=== PATIENT | female | born 1980 | race Caucasian/White ===

== ENCOUNTER 2019-06-18 17:15 | Inpatient (IN) | payer OTHER ==
[2019-06-18] VITALS (20 sets, daily range): BP systolic 74–127; BP diastolic 33–96
[~2019-06-18] VITALS: Ht 170.2 cm; Wt 89.4 kg
--- NOTE | ~2019-06-18 | HC ---
[facility] [place] [address] CONSULTATION Name: SHELTON PEREZ Room #: 244-P ADM IN M.R.#: [id number] Admission: 06/18/19 Attend Phys: Omer Mata MD Discharge: Date of : 76 Report #: [id number] THIS REPORT FOR: cc: ROSCOE - No family physician/PCP ROSCOE - No family physician/PCP Drea Mccarthy MD ~ CC: [facility] physician/PCP Gerardo Salcedo REASON FOR CONSULTATION: Acute kidney injury. REASON FOR PRESENTATION: Witnessed cardiac arrest. HISTORY OF PRESENT ILLNESS: Obtained from the medical charts. The patient is intubated. She is known to have breast cancer, triple negative breast cancer with diffuse metastases including the lung with complicated pleural effusion. Apparently, the patient has been at for an extended period of time. She had a witnessed cardiopulmonary arrest and CPR was initiated. The patient required 35 minutes of CPR with 6 rounds of epinephrine. Upon transporting here, she had another arrest and received a 7th dose of epinephrine. She is currently in the ICU, intubated, maintained on many pressors with a pH of 6.9 and an acute kidney injury. Lactate is up to 25. PAST MEDICAL HISTORY: From the medical chart, metastatic breast cancer. Recent hospitalizations at ruled out for COVID-19 infection. Other details are not available. ALLERGIES: Unknown. FAMILY HISTORY: Unknown due to the current patient's mental status. SOCIAL HISTORY: Unknown given the patient's current mental status. MEDICATIONS: Unknown given the patient's current mental status. REVIEW OF SYSTEMS: Unknown and unobtainable given the patient's current mental status and intubation. PHYSICAL EXAMINATION: VITAL SIGNS: Temperature is 33.2, blood pressure of 75/45, pulse rate is 85. HEAD AND NECK: ET tube with mottled skin on her face. CHEST: Decreased air entry on the left side. CARDIOVASCULAR: No rub with very thready pulse. [facility] [address] [place] [address] CONSULTATION Name: SHELTON PEREZ Room #: 244-[facility] IN .R.#: [id number] Admission: 06/18/19 Attend Phys: Omer Mata MD Discharge: Date of : 76 Report #: [id number] ABDOMEN: Soft. EXTREMITIES: Lower extremities, very mottled skin. LABORATORY DATA: Reviewed. The platelet count of 26,000, hemoglobin is 9.4, pH of 6.9 and a lactate of 24. Sodium was 150, potassium was 4.8. Troponin was 1.5. BUN was 28, creatinine was 4.81. IMPRESSION AND PLAN: 1. Acute kidney injury. 2. Post-cardiac arrest. 3. Severe metabolic acidosis. 4. Metastatic breast cancer. Current patient's situation, pH and laboratory values are incompatible with a survivable situations and life. There is really and unfortunately nothing from the renal perspective that would help this patient. Primary and Pulmonary team are reaching out to the family members to proceed with palliative, comfort care. By: 0724 0748 Drea Mccarthy MD /asia
--- NOTE | ~2019-06-18 | EMS ---
[address] [address] EMS Patient Care Report Name: SHELTON PEREZ Room #: 170-7 ADM IN M.R.#: [id number] Admission: 06/18/19 Attend Phys: Omer Mata MD Discharge: Date of : 76 Report #: [id number] THIS REPORT FOR: //name// Report Transmitted: 06/18/2019 18:15 EMS Care Summary [facility] MED-ACT Incident [id number] @ 06/18/2019 16:03 Incident Location [facility] [place] [address] Patient SHELTON PEREZ Female, 38 Years 1980 Patient Address [address] [place] [address] Patient History Cancer, Unspecified, Chief Complaint cardiac arrest Disposition Transported Lights/Powers Dispatch Reason Cardiac Arrest/ Transported To [facility] Narrative [id number] arrived on scene to a residence where first responders had already triaged code blue prior to EMS arriving. PAPR was dawned by EMS personnel and entered the residence to find a female patient laying supine on the floor with first responders performing CPR and had an IGEL in place and ventilating with BVM. First responders advised that it was a witnessed arrest by the patient's family. The patient has stage 4 of a cancer but they did not know the type of cancer. She was discharged yesterday from [facility]. Initial rhythm was asystole until about group home to ROSC where it then changed to PEA before obtaining ROSC. [facility] [address] [facility] [place] [address] EMS Patient Care Report Name: SHELTON PEREZ Room #: 170-7 ADM IN M.R.#: [id number] Admission: 06/18/19 Attend Phys: Omer Mata MD Discharge: Date of : 76 Report #: [id number] Cardiac arrest protocol followed with IO established and epi every 3-5 minutes no defibs due to non shockable rhythms. After ROSC was obtained a full set of vitals was obtained and then the patient transferred onto a tarp [facility]. ROSC remained and Kyle CPR device was transported with patient. ROSC was lost during transport CPR resumed update on [employer] to [place] that ROSC was lost. Report given to staff resuscitation efforts was transferred to [place] and resuscitation was continued. Initial Vitals @16:35P: 0,R: 0,GCS: 3,EtCO2: 51, @16:46P: 0,R: 0,GCS: 3,EtCO2: 48, @16:49P: 122,R: 0,BP: 101/67,GCS: 3,EtCO2: 66,Revised Trauma: 4, @17:05P: 0,R: 0,GCS: 3,EtCO2: 69, @16:13P: 0,R: 0,GCS: 3,Glucose: 114, @16:51P: 123,R: 0,GCS: 3,Glucose: 71,CO: 1,EtCO2: 78,SpO2: 94, Assessments @16:13MENTAL:Unresponsive,SKIN:Pale,HEENT:Head/Face: No Abnormalities,LUNG SOUNDS:General: No Abnormalities,Left Upper: No Abnormalities,Right Upper: No Abnormalities,Left Lower: No Abnormalities,Right Lower: No Abnormalities,ABDOMEN:General: No Abnormalities,Left Upper: No Abnormalities,Right Upper: No Abnormalities,Left Lower: No Abnormalities,Right Lower: No Abnormalities,PELVIS//GI:No Abnormalities,EXTREMITIES:Left Arm: No Abnormalities,Right Arm: No Abnormalities,Left Leg: No Abnormalities,Right Leg: No Abnormalities,PULSE:NEURO:No Abnormalities, Impression Cardiac arrest Procedures @PTAResponse: UnchangedSucceeded@16:22Epinephrine 1:10 - 1 Milligrams (mg) - Intravenous (IV)Response: Improved@16:5112-Lead ECGResponse: UnchangedSucceeded@16:26Epinephrine 1:10 - 1 Milligrams (mg) - Intravenous (IV)Response: Unchanged@16:40Epinephrine 1:10 - 1 Milligrams (mg) - Intravenous (IV)Response: Unchanged@16:35Epinephrine 1:10 - 1 Milligrams (mg) - Intravenous (IV)Response: Unchanged@16:30Epinephrine 1:10 - 1 Milligrams (mg) - Intravenous (IV)Response: Unchanged@16:45Epinephrine 1:10 - 1 Milligrams (mg) - Intravenous (IV)Response: Unchanged@16:21Normal Saline (.9% NaCl) 500cc (EZ-IO (Blue 25mm)) Site: NQ-Akwgm-Grjw ProximalResponse: UnchangedSucceeded@16:19Saline Lock 0cc (18 ga) Site: Forearm-LeftResponse: UnchangedFailed@16:28Response: UnchangedSucceeded@PTAiGEL Complications: None,Response: UnchangedSucceeded Timeline EXERCISE TEACHER,Response: UnchangedSucceeded, EXERCISE TEACHER,iGEL Complications: None,,Response: UnchangedSucceeded, 16:02,Call Received [facility] [address] [place] [address] EMS Patient Care Report Name: SHELTON PEREZ Room #: 170-7 ADM IN Talib#: [id number] Admission: 06/18/19 Attend Phys: Omer Mata MD Discharge: Date of : 76 Report #: [id number] 16:02,Psap Call 16:03,Dispatched 16:04,En Route 16:09,On Scene 16:13,At Patient 16:13,BP: / M,PULSE: 0,RR: 0 R,SPO2: Ox,ETCO2: ,B,PAIN: ,GCS: 3, 16:19,Saline Lock 0cc 18 ga Site: Forearm-Left,Response: UnchangedFailed, 16:21,Normal Saline (.9% NaCl) 500cc EZ-IO (Blue 25mm) Site: FS-Zbfmy-Kllu Proximal,Response: UnchangedSucceeded, 16:22,Epinephrine 1:10 - 1 Milligrams (mg) - Intravenous (IV),Response: Improved 16:26,Epinephrine 1:10 - 1 Milligrams (mg) - Intravenous (IV),Response: Unchanged 16:28,Response: UnchangedSucceeded, 16:30,Epinephrine 1:10 - 1 Milligrams (mg) - Intravenous (IV),Response: Unchanged 16:35,Epinephrine 1:10 - 1 Milligrams (mg) - Intravenous (IV),Response: Unchanged 16:35,BP: / M,PULSE: 0,RR: 0 R,SPO2: Ox,ETCO2: 51 ,BG: ,PAIN: ,GCS: 3, 16:40,Epinephrine 1:10 - 1 Milligrams (mg) - Intravenous (IV),Response: Unchanged 16:45,Epinephrine 1:10 - 1 Milligrams (mg) - Intravenous (IV),Response: Unchanged 16:46,BP: / M,PULSE: 0,RR: 0 R,SPO2: Ox,ETCO2: 48 ,BG: ,PAIN: ,GCS: 3, 16:49,BP: 101/67 M,PULSE: 122,RR: 0 R,SPO2: Ox,ETCO2: 66 ,BG: ,PAIN: ,GCS: 3, 16:51,BP: / M,PULSE: 123,RR: 0 R,SPO2: 94 Ox,ETCO2: 78 ,B,PAIN: ,GCS: 3, 16:51,12-Lead ECG,Response: UnchangedSucceeded, 16:58,Depart Scene 17:03,At Destination 17:05,BP: / M,PULSE: 0,RR: 0 R,SPO2: Ox,ETCO2: 69 ,BG: ,PAIN: ,GCS: 3, 17:54,Call Closed Disclaimer v1.1 Copyright 2020 [employer] This EMS Care Summary contains data elements from the applicable legal record (which may be displayed differently). It is designed to provide pertinent information for the following purposes: continuity of care, clinical quality, and state data reporting. The complete legal record is available to ED staff and administrators of the receiving hospital in [email or web address]'s Patient Tracker. All data is provided "as is."
[2019-06-18 17:57] LABS: HEMATOCRIT 29.2 % (37.0-47.0); HEMOGLOBIN 8.6 gm/dL (12.0-15.0); MCH 25.5 pg (26.0-34.0); MCHC 29.2 g/dL (28.0-37.0); MCV 87.1 fL (80.0-100.0); PLATELET COUNT 215 thou/uL (150-400); RBC 3.36 mil/uL (4.20-5.00); RDW 19.1 % (10.5-14.5); WBC 14.9 thou/uL (4.0-11.0)
[2019-06-18 18:13] LABS: CALCIUM 7.3 mg/dL (8.5-10.1); CREATININE 3.6 mg/dL (0.6-1.0); POTASSIUM 5.8 mmol/L (3.5-5.1); TROPONIN-I 0.18 ng/mL (<0.06)
[2019-06-18 18:27] LABS: ANISOCYTOSIS 2+; ATYPICAL LYMPHS 2 %; HYPOCHROMASIA 1+; METAMYELOCYTES 3 %; MYELOCYTES 1 %; NUCLEATED RBCS 4 /100WBC; PLATELET ESTIMATE NORMAL
[2019-06-18 18:27] LABS: BE(vivo) -23.6 mmol/L (-2 to +3); HCO3 7.3 mmol/L (22.0-26.0); PCO2 34.7 mmHg (35.0-45.0); pH 6.938 (7.360-7.450); sO2 99.4 % (92.0-98.0)
[2019-06-18 18:28] LABS: LARGE PLATELETS OCCASIONAL; TOXIC GRANULATION 1+
[2019-06-18 19:25] LABS: FIBRINOGEN 169.1 mg/dL (210-360); INR 2.2; PROTIME 22.6 Seconds (9.3-11.4)
[2019-06-18 19:34] LABS: D-DIMER > 35.20 ug/mLFEU (0.19-0.50)
[2019-06-18 19:36] LABS: APTT 139.6 Seconds (24.5-32.8)
[2019-06-18 19:42] LABS: BE(vivo) -20.2 mmol/L (-2 to +3); PO2 313.4 mmHg (80.0-100.0); sO2 99.5 % (92.0-98.0)
[2019-06-18 19:43] LABS: pH 7.053 (7.360-7.450)
--- NOTE | 2019-06-18 21:14 | NUR ---
REPORT RECEIVED FROM AMARI IN ED. PATIENT TRANSFERED FROM ICU VIA CART. PATIENT CONNECTED TO ICU MONITORS. PT ARRIVED WITH LEVOPHED AND EPI GTTS INFUSING AND PT ON VENTILATOR. PT WAS ASSESSED PER ICU PROTOCOL AND STARTED ON HYPOTHERMIA PROTOCOL WITH THE AID OF JANE. SPOKE WITH SARWAT BARRY REGARDING ORDERS. DR. PADILLA WAS CALLED TO UPDATE ON PTS STATUS. FAMILY WAS CALLED AND NOTIFIED OF PTS CONDITION AND THE VISTOR RESTRICTION.
--- NOTE | 2019-06-18 22:10 | NUR ---
NO CHEST XRAY IN CHART REGUARDING ETT/NGT PLACEMENT. CALLED ER AND SPOKE WITH DR. KENDALL, HE HAD SEEN THE CXR TAKEN IN THE ER AND REPORTED THAT THE ETT/NGT ARE IN THE CORRECT PLACE AND CAN BE USED.
[2019-06-18 23:00] LABS: BE(vivo) -22.9 mmol/L (-2 to +3); HCO3 6.7 mmol/L (22.0-26.0); PCO2 26.9 mmHg (35.0-45.0); PO2 338.9 mmHg (80.0-100.0); sO2 99.5 % (92.0-98.0)
[2019-06-18 23:01] LABS: pH 7.017 (7.360-7.450)
[2019-06-19] VITALS (29 sets, daily range): BP systolic 51–161; BP diastolic 31–106
[2019-06-19 00:51] LABS: RDW 19.3 % (10.5-14.5)
[2019-06-19 00:52] LABS: HEMATOCRIT 37.1 % (37.0-47.0); MCH 25.4 pg (26.0-34.0); MCHC 29.5 g/dL (28.0-37.0); MCV 86.2 fL (80.0-100.0); WBC 14.5 thou/uL (4.0-11.0)
[2019-06-19 01:07] LABS: CREATININE 3.9 mg/dL (0.6-1.0); HEMOGLOBIN 10.9 gm/dL (12.0-15.0); MAGNESIUM 3.7 mg/dL (1.8-2.4); PHOSPHORUS 8.4 mg/dL (2.5-4.9)
[2019-06-19 01:15] LABS: POTASSIUM 4.3 mmol/L (3.5-5.1)
[2019-06-19 01:16] LABS: TROPONIN-I 1.29 ng/mL (<0.06)
[2019-06-19 01:48] LABS: INR 3.6; PROTIME 36.2 Seconds (9.3-11.4)
[2019-06-19 01:50] LABS: ABSOLUTE NEUTROPHILS 11.9 thou/uL (1.4-8.2); NUCLEATED RBCS 2 /100WBC; PLATELET COUNT 55 thou/uL (150-400)
[2019-06-19 01:51] LABS: ANISOCYTOSIS 2+; PLATELET ESTIMATE DECREASED; POIKILOCYTOSIS 2+
[2019-06-19 01:53] LABS: APTT 107.3 Seconds (24.5-32.8)
[2019-06-19 04:30] LABS: BE(vivo) -26.1 mmol/L (-2 to +3); HCO3 5.4 mmol/L (22.0-26.0); PCO2 27.3 mmHg (35.0-45.0); PO2 183.2 mmHg (80.0-100.0); sO2 98.2 % (92.0-98.0)
[2019-06-19 04:31] LABS: pH 6.916 (7.360-7.450)
--- NOTE | 2019-06-19 05:55 | NUR ---
SPOKE WITH DR. PADILLA THIS MORNING IN REGARDS TO PATIENTS CONDITION. PATIENT IS NOT MAKING URINE (10ML TOTAL FOR SHIFT), UNABLE TO GET BLOOD PRESSURES. PATIENT NOT RESPONDING TO ANY DEEP PAIN STIMULUS. NO GAG/CORNEAL REFLEX PRESENT. [facility] WAS NOTIFIED AND A REFERRAL NUMBER WAS OBTAINED. SARWAT BARRY CONTACTED FAMILY TO UPDATE THEM ON PATIENTS CONDITION. FAMILY WISHING TO CONTINUE CURRENT TREATMENT COARSE. DR. PADILLA STATING PATIENTS CONDITION IS NOT STABLE ENOUGH FOR HYPOTHERMIA PROTOCOL. AT 0506 PATIENT STARTED REWARMING PER DR. PADILLA'S ORDERS.
[2019-06-19 05:59] LABS: CREATININE 4.1 mg/dL (0.6-1.0); POTASSIUM 4.8 mmol/L (3.5-5.1)
[2019-06-19 06:06] LABS: HEMATOCRIT 29.9 % (37.0-47.0); HEMOGLOBIN 9.4 gm/dL (12.0-15.0); MCH 27.5 pg (26.0-34.0); MCHC 31.3 g/dL (28.0-37.0); MCV 87.8 fL (80.0-100.0); PLATELET COUNT 26 thou/uL (150-400); RBC 3.41 mil/uL (4.20-5.00); RDW 18.6 % (10.5-14.5)
[2019-06-19 06:11] LABS: MAGNESIUM 3.6 mg/dL (1.8-2.4); PHOSPHORUS 10.3 mg/dL (2.5-4.9)
[2019-06-19 06:32] LABS: TROPONIN-I 1.53 ng/mL (<0.06)
[2019-06-19 06:41] LABS: PROTIME 65.4 Seconds (9.3-11.4)
[2019-06-19 07:00] LABS: APTT 114.4 Seconds (24.5-32.8); INR 6.5
[2019-06-19 07:56] LABS: BE(vivo) -28.5 mmol/L (-2 to +3); HCO3 3.9 mmol/L (22.0-26.0); PO2 248.3 mmHg (80.0-100.0); sO2 98.9 % (92.0-98.0)
[2019-06-19 07:57] LABS: PCO2 23.9 mmHg (35.0-45.0); pH 6.832 (7.360-7.450)
--- NOTE | 2019-06-19 08:00 | NUR ---
ASSUMMED CARE, LEVOPHED DRIP TITRATED TO KEEP MAP GREATER THAN 60 MMHG. PATIENT ON WARMING PORTION OF ARTIC SUN. ABG'S DRAWN, RESULTS PENDING.
--- NOTE | 2019-06-19 09:28 | EKG ---
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1980 Requested By: Javi Chavis Order Number: [id number] MD: Rashawn Hamilton Measurements Intervals [place] Rate: 113 P: 72 NC: 165 QRS: 126 QRSD: 75 T: QT: 309 QTc: 424 Interpretive Statements Sinus tachycardia Anteroseptal infarct, age indeterminate Low voltage Diffuse ST segment abnormality No previous ECG available for comparison Electronically Signed On 06-19-2019 9:26:45 CDT by Rashawn Hamilton [email or web address] <ELECTRONICALLY SIGNED> By: Rashawn Hamilton MD, FAC 06/19/19 0926 1815 1815 Rashawn Hamilton MD, [facility] /EPI
--- NOTE | 2019-06-19 09:30 | NUR ---
PATIENT CONTINUES TO HAVE LOW BP AND BECOMING MOTTLED, ABG'S CALLED TO DR PADILLA AND SODIUM BICARB GIVEN PER ORDER. LEVOPHED TITRATED TO 30 MCG/MIN AND EPI DRIP TITRATED FOR BP MANAGEMENT. PARENTS UPDATED AND WILL BE IN WHEN THEY CAN SEE THE PATIENT. WILL CONTINUE TO MONITOR.
--- NOTE | 2019-06-19 10:39 | NUR ---
SPOKE WITH MOTHER AT 1030 CONCERNING WHERE TO PARK AND CHEDK IN TO COME UP TO THE ROOM
--- NOTE | 2019-06-19 11:16 | NUR ---
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 Pt with very poor prognosis, intubated on max pressors with no gag/corneal reflex. EEG tomorrow. Electrolyte abnormalities. NPO day 1. RD available if nutrition support recs are desired however physicians are recommending care withdrawal.
[2019-06-19 11:40] LABS: ABSOLUTE NEUTROPHILS 8.3 thou/uL (1.4-8.2); METAMYELOCYTES 4 %; NUCLEATED RBCS 9 /100WBC
[2019-06-19 11:42] LABS: ANISOCYTOSIS 2+
--- NOTE | 2019-06-19 12:00 | NUR ---
PARENTS IN TO SEE PATIENT, KATHRYN AT THE BEDSIDE WITH THE PARENTS THEY EACH CAME IN SEPARETLY. DR PADILLA IN TO EXAMINE PATIENT AND WILL SPEAK WITH THE PARENTS. DR SOUZA SPOKE WITH THE PARENTS VIA PHONE EARLIER THIS AM PER PARENTS AND DR SOUZA.
--- NOTE | 2019-06-19 12:22 | NUR ---
PATIENT MONITOR SR TO SB TO ADWOA, DR PADILLA AT BEDSIDE, AMP OF EPI GIVEN PER ORDER. NO RESPONSE TO EPI. ALL DRIPS AT MAX. PATIENT PRONOUCED AT [address] PADILLA. PUPILS FIXED AND DILATED. NO HEART TONES. MONITOR SHOWS ASYSTOLE.
--- NOTE | 2019-06-19 13:07 | NUR ---
Case discussed with the care team. The attending has talked with the pt's parents and they were on their way to be with her. Poor prognosis. Family discussing her code status. Will remain available for support as needed. UR checking for medicare/or medicaid coverage. [employer] referral initiated. Pt was recently at [facility] and on experimental tx for stg IV breast CA.
== END 2019-06-19 12:22 | DRG 871 ==
LOC: EDBD 17:15 → ER 17:15 → ICU 18:44 → EROBS 18:44 → ICU 21:11
PROVIDERS: Emergency Medicine; Internal Medicine Pulmonary Disease; ADMIT Internal Medicine
PROC: 02HV33Z Insertion of Infusion Device into Superior Vena Cava, Percutaneous Approach (ICD-10-PCS; principal; 2019-06-19)
PROC: 5A12012 Performance of Cardiac Output, Single, Manual (ICD-10-PCS; principal; 2019-06-19)
DX: A41.9 Sepsis, unspecified organism (principal); D65 Disseminated intravascular coagulation [defibrination syndrome]; J96.01 Acute respiratory failure with hypoxia; G92 Toxic encephalopathy; R40.20 Unspecified coma; R65.21 Severe sepsis with septic shock; N17.9 Acute kidney failure, unspecified; E87.2 Acidosis; D68.59 Other primary thrombophilia; G93.1 Anoxic brain damage, not elsewhere classified; D68.9 Coagulation defect, unspecified; E87.5 Hyperkalemia; D64.9 Anemia, unspecified; I95.9 Hypotension, unspecified; E16.2 Hypoglycemia, unspecified; F41.9 Anxiety disorder, unspecified; E03.9 Hypothyroidism, unspecified; G89.29 Other chronic pain; Z60.2 Problems related to living alone; M19.90 Unspecified osteoarthritis, unspecified site; Z20.828 Contact with and (suspected) exposure to other viral communicable diseases; I46.9 Cardiac arrest, cause unspecified; Z86.711 Personal history of pulmonary embolism; Z09 Encounter for follow-up examination after completed treatment for conditions other than malignant neoplasm; Z85.3 Personal history of malignant neoplasm of breast; Z86.718 Personal history of other venous thrombosis and embolism; Z82.49 Family history of ischemic heart disease and other diseases of the circulatory system
CPT/HCPCS: 10078